=== PATIENT | female | born 1980 | race American Indian/Alaskan Native ===

== ENCOUNTER 2021-01-23 08:45 | Emergency (ER) | payer SELFPAY ==
[2021-01-23 10:32] VITALS: BP 131/79
--- NOTE | 2021-01-23 10:45 | Emergency Department Report ---
ED Female HPI - General Chief complaint: Urogenital-Female Stated complaint: BLADDER PRESSURE/URINATING Time Seen by Provider: 01/23/21 10:14 Source: patient Mode of arrival: Ambulatory Limitations: No Limitations - History of Present Illness Initial comments: Patient is a 40-year-old female presents emergency room with complaints of urinary frequency that began 3 days ago. She has associated mild dysuria. She states that she had some light spotting but that resolved. She denies any fever, vomiting, diarrhea, abdominal pain. Patient states that she has a IUD in. No past medical history. No allergies to medications. - Related Data Previous Rx's Medication Instructions Recorded Last Taken Type Phenazopyridine [Pyridium] 100 mg PO TID 2 Days #6 tab 01/23/21 Unknown Rx cephALEXin [Keflex] 500 mg PO BID 7 Days #14 cap 01/23/21 Unknown Rx Allergies Allergy/AdvReac Type Severity Reaction Status Date / Time No Known Allergies Allergy Unverified 01/23/21 10:31 ED Review of Systems ROS: Stated complaint: BLADDER PRESSURE/URINATING Other details as noted in HPI Comment: All other systems reviewed and negative ED Past Medical Hx - Past Medical History Previous Medical History?: No - Surgical History Past Surgical History?: No - Social History Smoking Status: Former Smoker - Medications Home Medications: Home Medications Medication Instructions Recorded Confirmed Last Taken Type Phenazopyridine [Pyridium] 100 mg PO TID 2 Days #6 tab 01/23/21 Unknown Rx cephALEXin [Keflex] 500 mg PO BID 7 Days #14 cap 01/23/21 Unknown Rx ED Physical Exam - General Limitations: No Limitations General appearance: alert, in no apparent distress - Head Head exam: Present: atraumatic, normocephalic - Eye Eye exam: Present: normal appearance - ENT ENT exam: Present: mucous membranes moist - Respiratory Respiratory exam: Present: normal lung sounds bilaterally. Absent: respiratory distress, wheezes, rales, rhonchi, stridor, chest wall tenderness, accessory muscle use, decreased breath sounds, prolonged expiratory - Cardiovascular Cardiovascular Exam: Present: regular rate, normal rhythm, normal heart sounds. Absent: systolic murmur, diastolic murmur, rubs, gallop - GI/Abdominal GI/Abdominal exam: Present: soft, normal bowel sounds. Absent: distended, tenderness, guarding, rebound, rigid - Neurological Exam Neurological exam: Present: alert, oriented X3 - Psychiatric Psychiatric exam: Present: normal affect, normal mood - Skin Skin exam: Present: warm, dry, intact ED Course Vital Signs 01/23/21 10:18 Temperature 98.2 F Pulse Rate 75 Respiratory 20 Rate Blood Pressure 131/79 O2 Sat by Pulse 100 Oximetry ED Medical Decision Making - Medical Decision Making Patient is a 40-year-old female presents emergency room with complaints of urinary frequency that began 3 days ago. She has associated mild dysuria. She states that she had some light spotting but that resolved. She denies any fever, vomiting, diarrhea, abdominal pain. Patient states that she has a IUD in. No past medical history. No allergies to medications. Vitals are normal. No abdominal tenderness on exam. UA shows evidence of UTI. Patient given 1 g ceftriaxone IM on the emergency department. Patient given prescription for medication. Advised patient Please take medication as prescribed. Increase your water intake. Medication may turn your urine orange, this is normal. Follow-up with a primary care doctor. Follow-up with your [facility]. Return to emergency room for any new or worsening symptoms. Critical care attestation.: If time is entered above; I have spent that time in minutes in the direct care of this critically ill patient, excluding procedure time. ED Disposition Clinical Impression: UTI (urinary tract infection) Qualifiers: Urinary tract infection type: acute cystitis Hematuria presence: without hematuria Qualified Code(s): N30.00 - Acute cystitis without hematuria Disposition: HOME / SELF CARE / HOMELESS Is pt being admited?: No Does the pt Need Aspirin: No Condition: Stable Instructions: Urinary Tract Infection, Adult, [id number] Additional Instructions: Please take medication as prescribed. Increase your water intake. Medication may turn your urine orange, this is normal. Follow-up with a primary care doctor. Follow-up with your [facility]. Return to emergency room for any new or worsening symptoms. Prescriptions: cephALEXin [Keflex] 500 mg PO BID 7 Days #14 cap Phenazopyridine [Pyridium] 100 mg PO TID 2 Days #6 tab Referrals: JA MILLER MD [Staff Physician] - 3-5 Days YOEL VARGAS MD [Staff Physician] - 3-5 Days Time of Disposition: 11:31 Print Language: GERMAN
[2021-01-23 11:21] LABS: HCG Qualitative,Urine Negative (Negative)
[2021-01-23 11:22] LABS: Bilirubin,Urine NEG (Negative); Blood,Urine MOD (Negative); Color,Urine Yellow (Yellow); Mucus,Urine FEW /HPF; Protein,Urine <15 mg/dL mg/dL (Negative); Urobilinogen,Urine < 2.0 mg/dL (<2.0)
[2021-01-23] MEDS ORDERED: LIDOCAINE-MPF (1%) 10 MG/1 ML VIAL 5 ML INFILTRATI ONE (11:30)
== END 2021-01-23 13:37 | disposition home or self-care (01) ==
LOC: ED 08:45
DX: N39.0 Urinary tract infection, site not specified (principal)
CPT/HCPCS: 81001; 81025; 87076; 87086; 87186; 96372; 99283; J0696